=== PATIENT | male | born 1975 | race Caucasian/White ===

== ENCOUNTER 2025-01-15 02:25 | Outpatient (CLI) | payer OTHER, SELFPAY | END 2025-01-15 02:26 | disposition home or self-care (01) | LOC: AMB 01-16 09:20 | PROVIDERS: Visit Provider Family Medicine | DX: F10.129 Alcohol abuse with intoxication, unspecified (principal); T14.90XA Injury, unspecified, initial encounter; V47.0XXA Car driver injured in collision with fixed or stationary object in nontraffic accident, initial encounter; Y92.410 Unspecified street and highway as the place of occurrence of the external cause | CPT/HCPCS: A0425; A0427 ==